=== PATIENT | male | born 1980 | race Caucasian/White ===

== ENCOUNTER 2018-09-13 10:42 | Outpatient (CLI) | payer OTHER ==
--- NOTE | 2018-09-13 11:04 | RAD ---
XR Ankle Lt 3 View STANDARD HISTORY: Left ankle pain FINDINGS: No fracture or dislocation is identified. The ankle mortise is maintained. Soft tissue swelling is pr esent.
== END 2018-09-13 10:43 | disposition home or self-care (01) ==
LOC: BICRAD 10:42
PROVIDERS: ATTEND Internal Medicine Rheumatology
DX: M25.572 Pain in left ankle and joints of left foot (principal); M65.9 Synovitis and tenosynovitis, unspecified; M79.89 Other specified soft tissue disorders

== ENCOUNTER 2019-09-13 09:01 | Emergency (ER) | payer OTHER ==
[2019-09-13] MEDS ORDERED: Acetaminophen 500 MG TAB ONE (09:15)
== END 2019-09-13 09:24 | disposition home or self-care (01) ==
LOC: ERS 09:01
DX: S06.0X0A Concussion without loss of consciousness, initial encounter (principal); S00.01XA Abrasion of scalp, initial encounter; X58.XXXA Exposure to other specified factors, initial encounter
CPT/HCPCS: 99283